=== PATIENT | male | born 1955 | race Caucasian/White ===

== ENCOUNTER 2021-01-02 17:55 | Emergency (ER) | payer MEDICARE, OTHER, SELFPAY ==
[2021-01-02 18:30] VITALS: BP 112/86; PULSE 98; RESP 12; TEMP 36.7; O2SAT 100; BMI 40.4
--- NOTE | 2021-01-02 19:04 | HMH.EDUTC ---
[facility] [place] Clinical Impression: Encounter for laboratory testing for COVID-19 virus Sinusitis Qualifiers: Sinusitis location: unspecified location Chronicity: unspecified Qualified Code(s): J32.9 - Chronic sinusitis, unspecified Disposition: Home, Self-Care Condition on Discharge: Good Instructions: Sinusitis, DI for Sinusitis, DI for COVID-19 (Suspected or Confirmed ), Coronavirus Disease 2019, Preventing the Spread of Coronavirus Discharge Instructions Additional Instructions: *Monitor Temp, Over the counter Motrin or Tylenol as directed/as needed Tylenol every 4 hours and Motrin every 6 hours (as long as your family doctor has told you that you can take it) for fever or pain. and straight to ER if unable to lower temp less than 101.0 after medication given *Warm salt water gargles may help to soothe the throat *Throat Lozenges *Warm fluids like tea with honey may help to soothe the throat *Sleep elevated *Humidifier/Vaporizer Follow up IMMEDIATELY for new or worsening symptoms or no Noticeable improvement over the next 48-72 hours. 911 for difficulty breathing or swallowing You were tested for today for COVID19 your test result should be back in the next 24-48 hours, you may call to the [facility] to see if your test results are back in the next 48 hours [phone] [facility] hours are 9am-9pm You was given a handout with instructions for Self Quarantine and Self isolation for while you wait on test results and what to do if they are positive If you are positive the Health Dept will be contacting you also Make sure to take your Vitamins Vit. C Vit D and Zinc if you can take them Prescriptions: predniSONE [Deltasone 10mg tablet] 10 mg PO BID 5 Days #10 tab Transmission Status: Pending to [facility] Benzonatate [Tessalon Perle 100mg Cap*] 100 mg PO TID PRN #15 cap PRN Reason: Cough Transmission Status: Pending to [facility] Azithromycin [Z-Ronaldo 250mg Tab] 250 mg PO DIRECTED #6 tab Transmission Status: Pending to [facility] Referrals: Benji Pearce MD [Primary Care Provider] - As needed Time of Disposition: 19:17 Medical Decision Making - Tommy Inquiry Pt receiving controlled substance: No Tommy was queried for this patient: No Vital Signs: 01/02/21 18:30 01/02/21 19:05 Temperature 98.1 F 98.1 F Temperature Source Oral Pulse Rate 98 H Pulse Rate [Right Brachial] 98 H Respiratory Rate 12 12 Blood Pressure 112/86 Blood Pressure [Right Arm] 112/86 Blood Pressure Mean [Right Arm] 94 Blood Pressure Source [Right Arm] Automatic Cuff Blood Pressure Position [Right Arm] Sitting 02 Sat by Pulse Oximetry 100 Oxygen Delivery Method Room Air Orders (Tests/Meds): ORDERS Category Date Time Status Covid-19 Nasal PCR ([facility]) Routine Lab 01/02/21 18:20 Received Medical Decision Narrative: Patient states he has taken azithromycin and prednisone in the past without reactions or complications [facility] [place] - General Stated complaint: covid test, with covid symptoms Time Seen by Provider: 01/02/21 19:04 Mode of Arrival: Ambulatory Source of Information: Patient Limitations: No Limitations Description of Symptoms (Recalled from Triage Doc. by RN): PATIENT C/O SINUS PRESSURE. RECENTLY EXPOSED TO COVID HEENT Symptoms (Recalled from RN notes): Yes Resp Symptoms (Recalled from RN notes): No Skin Symptoms (Recalled from RN notes): No MS Symptoms (Recalled from RN notes): No Functional Status (Recalled from RN notes): wnl - History of Present Illness Provider Complaint: Patient states that he has been having sinus pain and pressure along with drianage for over a week that has got worse over the last couple of days State that he was around someone a few days ago that has since tested positive for COVID and wasnt sure if he just had a sinus infection or maybe he has COVID and he wanted to get tested - Related Data Previous Rx's Medication Instructions Recorded Nely
[2021-01-02 19:05] VITALS: BP 112/86; PULSE 98; RESP 12; TEMP 36.7; O2SAT 100
== END 2021-01-02 19:15 | disposition home or self-care (01) ==
PROVIDERS: Emergency Provider Nurse Practitioner; PCP Family Medicine
DX: J32.9 Chronic sinusitis, unspecified (principal); Z20.822 Contact with and (suspected) exposure to COVID-19
CPT/HCPCS: G0463; 99202; U0003

== ENCOUNTER 2021-06-22 12:23 | Emergency (ER) | payer MEDICARE, OTHER, SELFPAY ==
[2021-06-22 12:37] VITALS: PULSE 91; RESP 16; O2SAT 99; BMI 37.6
[2021-06-22 12:45] VITALS: BP 132/91; PULSE 101; RESP 18; TEMP 36.7; O2SAT 99; BMI 37.6
--- NOTE | 2021-06-22 12:53 | HMH.EDUTC ---
[facility] [place] Disposition Clinical Impression: Sinusitis Qualifiers: Sinusitis location: unspecified location Chronicity: unspecified Qualified Code(s): J32.9 - Chronic sinusitis, unspecified Disposition: Home, Self-Care Condition on Discharge: Good Instructions: Sinusitis, DI for Sinusitis, DI for Cough -- Adult Additional Instructions: *Monitor Temp, Over the counter Motrin or Tylenol as directed/as needed Tylenol every 4 hours and Motrin every 6 hours (as long as your family doctor has told you that you can take it) for fever or pain. and straight to ER if unable to lower temp less than 101.0 after medication given *Warm salt water gargles may help to soothe the throat *Throat Lozenges *Warm fluids like tea with honey may help to soothe the throat *Sleep elevated *Humidifier/Vaporizer Take medication as prescribed Return if needed Follow up with Family Doctor if no imrpovement or any worsening of symptoms Follow up IMMEDIATELY for new or worsening symptoms or no Noticeable improvement over the next 48-72 hours. 911 for difficulty breathing or swallowing Prescriptions: guaiFENesin [Mucinex 600mg tablet] 1 - 2 tbsp PO Q12HP PRN #20 tab PRN Reason: Congestion Transmission Status: Received by [facility] predniSONE [Deltasone 10mg tablet] 10 mg PO BID 5 Days #10 tab Transmission Status: Received by [facility] Doxycycline Monohydrate [Doxycycline O'Brien 100mg Tab] 100 mg PO BID 10 Days #20 tab Transmission Status: Received by [facility] Ondansetron [Zofran 4mg ODT] 4 mg PO TIDP PRN #6 tab PRN Reason: Nausea Transmission Status: Received by [facility] Referrals: Benji Pearce MD [Primary Care Provider] - 06/22/21 1:14 pm Time of Disposition: 13:14 Medical Decision Making - Tommy Inquiry Pt receiving controlled substance: No Tommy was queried for this patient: No Vital Signs: 06/22/21 12:37 06/22/21 12:45 06/22/21 13:17 Temperature 98.0 F 98.0 F Temperature Source Oral Pulse Rate 101 H Pulse Rate [Left Radial] 91 H 101 H Respiratory Rate 16 18 18 Blood Pressure 132/91 H Blood Pressure [Right Arm] 132/91 H Blood Pressure Mean [Right Arm] 104 Blood Pressure Source [Right Arm] Automatic Cuff Blood Pressure Position [Right Arm] Sitting 02 Sat by Pulse Oximetry 99 99 Oxygen Delivery Method Room Air Room Air Medical Decision Narrative: Pt states that he has taken doxy and Prednisone in the past without reactions or complications Recommended CXR and patient declined [facility] [place] HPI - General Stated complaint: body aches, chill sore throat, rash, nauses Time Seen by Provider: 06/22/21 12:53 Mode of Arrival: Ambulatory Source of Information: Patient Limitations: No Limitations Description of Symptoms (Recalled from Triage Doc. by RN): pt c/o nausea, productive cough and congestion x1 week. pt denies cp or soa. - History of Present Illness Provider Complaint: Patient states that he has been having sinus pain and pressure for over a week States that he has a bad taste in his mouth like it is running down the back of his throat and at times he is able to cough up some mucous States that he has also been having some nausea and feels like it is from the infection he is swallowing that is draining in the back of his throat States that he came in today to get checked thinking he may need some antibiotics to clear it up - Related Data Previous Rx's Medication Instructions Recorded Azithromycin [Z-Ronaldo 250mg Tab] 250 mg PO DIRECTED #6 tab 01/02/21 Benzonatate [Tessalon Perle 100mg 100 mg PO TID PRN #15 cap 01/02/21 Cap*] predniSONE [Deltasone 10mg tablet] 10 mg PO BID 5 Days #10 tab 01/02/21 Doxycycline Monohydrate 100 mg PO BID 10 Days #20 tab 06/22/21 [Doxycycline O'Brien 100mg Tab] Ondansetron [Zofran 4mg ODT] 4 mg PO TIDP PRN #6 tab 06/22/21 guaiFENesin [Mucinex 600mg tablet] 1 - 2 tbsp PO Q12HP PRN #20 tab 06/22/21 predniSONE [Deltasone 10mg ta
[2021-06-22 13:17] VITALS: BP 132/91; PULSE 101; RESP 18; TEMP 36.7; O2SAT 99
== END 2021-06-22 13:23 | disposition home or self-care (01) ==
PROVIDERS: Emergency Provider Nurse Practitioner; PCP Family Medicine
DX: J32.9 Chronic sinusitis, unspecified (principal)
CPT/HCPCS: G0463; 99202